=== PATIENT | female | born 1965 | race Caucasian/White ===

== ENCOUNTER → 2018-10-26 | Outpatient (CLI) | payer OTHER ==
[~2018-10-26] MED LIST: ALPR0.5T PO; CYCL10TA9 PO; DULO60CA6 PO; HYDR-1231 PO; IBUP800T26 PO; LEVO150T4 PO; OMEP20CA12 PO; ONDA-42 SL; PANT40TA PO; SCR1T PO
== END ==
LOC: LAB 10:04
PROVIDERS: ATTEND Family Medicine
DX: Z02.71 Encounter for disability determination (principal)
CPT/HCPCS: 36415; 85652; 86038; 86039; 86430

== ENCOUNTER → 2020-02-18 | Outpatient (CLI) | payer BC, OTHER ==
--- NOTE | 2020-02-18 11:07 | Diagnostic Imaging Report ---
EXAM: Digital mammogram bilateral screening COMPARISON: There are no prior studies for comparison. There are no current complaints. FINDINGS: The fibroglandular tissue in both breasts is heterogeneously dense. This does limit the sensitivity of this exam. There is no primary or secondary sign of malignancy noted. IMPRESSION: 1. There is no evidence for malignancy. 2. The patient should have her annual bilateral screening mammogram on schedule in January of 2021. ACR category 1. ACR BI-RADS Category 1: Negative. Result letter will be mailed to the patient. Note: At least 10% of breast cancer is not imaged by mammography. Dictated by: Dictated on workstation # [id number]
== END ==
LOC: RAD 07:37
PROVIDERS: ATTEND Nurse Practitioner Community Health
DX: Z12.31 Encounter for screening mammogram for malignant neoplasm of breast (principal)
CPT/HCPCS: 77063; 77067